=== PATIENT | female | born 1940 ===

== ENCOUNTER 2018-02-22 19:59 | Emergency (ER) | payer OTHER ==
[2018-02-22 20:09] VITALS: BP 170/80; TEMP 98.2; O2SAT 99
[2018-02-22] MEDS ORDERED: Iohexol 240 (50 ml) PO ONE (20:47)
[2018-02-22] MEDS ORDERED: Sodium Chloride 0.9% 1,000 ML IV ONE (20:48)
--- NOTE | 2018-02-22 20:53 | C.PDOC ---
History Of Present Illness 77 year old female presents to the ER with a complaint of intermittent epigastric/upper quadrant pain for the past few weeks, associated with some nausea. Patient also reports having a headache and dizziness that worsens with head movement. Denies vomiting, dysuria, or fever. Chief Complaint (Nursing): Abdominal Pain History Per: Patient History/Exam Limitations: no limitations Onset/Duration Of Symptoms: Days, Intermittent Episodes Current Symptoms Are (Timing): Still Present Location Of Pain/Discomfort: RUQ, Epigastric, LUQ Radiation Of Pain To:: None Quality Of Discomfort: Unable To Describe Associated Symptoms: Nausea, Other (Headache, dizziness). denies: Fever, Vomiting, Urinary Symptoms Exacerbating Factors: None Alleviating Factors: None Recent travel outside of the [place]: No Abnormal Vaginal Bleeding: No Past Medical History Reviewed: Historical Data, Nursing Documentation, Vital Signs Vital Signs: Last Vital Signs Temp 98.2 F 02/22/18 20:04 Pulse 78 02/22/18 20:04 Resp 20 02/22/18 20:04 BP 170/80 H 02/22/18 20:04 Pulse Ox 99 02/22/18 23:05 - Medical History PMH: HTN Family History: States: No Known Family Hx - Social History Hx Alcohol Use: No Hx Substance Use: No - Immunization History Hx Tetanus Toxoid Vaccination: No Hx Influenza Vaccination: No Hx Pneumococcal Vaccination: No Review Of Systems Constitutional: Negative for: Fever, Chills Cardiovascular: Negative for: Chest Pain, Palpitations Respiratory: Negative for: Cough, Shortness of Breath Gastrointestinal: Positive for: Nausea, Abdominal Pain. Negative for: Vomiting Genitourinary: Negative for: Dysuria, Hematuria Neurological: Positive for: Headache, Dizziness Physical Exam - Physical Exam Appears: Non-toxic, Other (Conscious, alert) Skin: Normal Color, Warm, Dry Head: Atraumatic, Normacephalic Eye(s): bilateral: Normal Inspection, PERRL, EOMI Oral Mucosa: Moist Neck: Normal, No Midline Cervical Tenderness, No Paracervical Tenderness, Supple Chest: Symmetrical, No Tenderness Cardiovascular: Rhythm Regular Respiratory: Normal Breath Sounds, No Rales, No Rhonchi, No Wheezing Gastrointestinal/Abdominal: Soft, Tenderness (Epigastric, RUQ, LLQ), No Guarding , No Rebound Back: No CVA Tenderness Neurological/Psych: Oriented x3, Normal Speech ED Course And Treatment - Laboratory Results Result Diagrams: 02/22/18 20:59 02/22/18 20:59 O2 Sat by Pulse Oximetry: 99 (Room air) Pulse Ox Interpretation: Normal Progress Note: CT abd/pel, CT head, blood work, and urinalysis ordered. IV fluids administered. Disposition Counseled Patient/Family Regarding: Diagnosis - Disposition Referrals: [facility] [Outside] Disposition: HOME/ ROUTINE Disposition Time: 23:00 Condition: STABLE Additional Instructions: to return if with increased abd pain especially of Right lower quadeant area. Prescriptions: Famotidine [Pepcid] 20 mg PO BID #20 tab Sucralfate [Carafate] 1 gm PO BID #14 tab Instructions: Acute Abdomen (Belly Pain), Adult (DC), Gastritis (DC), Thrombocytosis Forms: [facility] (Colombian), Gen Discharge Inst Luxem[place]ish Print Language: TUNISIAN - POA Present On Arrival: None - Clinical Impression Clinical Impression: Abdominal pain, Gastritis, Thrombocytosis - Scribe Statement The provider has reviewed the documentation as recorded by the Scribjarvis Aguilar All medical record entries made by the Vinnyibjarvis were at my direction and personally dictated by me. I have reviewed the chart and agree that the record accurately reflects my personal performance of the history, physical exam, medical decision making, and the department course for this patient. I have also personally directed, reviewed, and agree with the discharge instructions and disposition.
[2018-02-22] MEDS ORDERED: Iohexol 240 (50 ml) ONE (20:58)
[2018-02-22 21:03] LABS: HEMOGLOBIN 12.4 g/dL (11.0-16.0); LYMPH # 1.7 K/uL (1.0-4.3); LYMPH % 17.4 % (20.0-40.0); MONO # 1.4 K/uL (0.0-0.8); NEUT # 6.4 K/uL (1.8-7.0); NRBC % 0.1 % (0.0-2.0); WHITE BLOOD COUNT 9.7 K/uL (4.8-10.8)
[2018-02-22 21:18] LABS: BASO % 0.4 % (0.0-2.0); EOS # 0.2 K/uL (0.0-0.7); EOS % 1.8 % (0.0-4.0); MEAN CELL VOLUME 79.5 fL (81.0-99.0); MEAN CORPUSCULAR HGB CONC 32.7 g/dL (33.0-37.0); MEAN PLATELET VOLUME 8.4 fL (7.2-11.7); MONO % 14.5 % (0.0-10.0); NEUT % 65.9 % (50.0-75.0); RBC 4.79 Mil/uL (3.80-5.20); RED CELL DISTRIBUTION WIDTH 14.5 % (11.5-14.5)
[2018-02-22 21:23] LABS: ALB/GLOB RATIO 1.4 (1.0-2.1); ALBUMIN 4.3 g/dL (3.5-5.0); ALT/SGPT 32 U/L (9-52); AST/SGOT 29 U/L (14-36); BLOOD UREA NITROGEN 15 mg/dL (7-17); CALCIUM 9.4 mg/dl (8.6-10.4); GFR AFRICAN-AMERICAN > 60; GFR NON-AFRICAN AMERICAN > 60; LIPASE 100 U/L (23-300)
[2018-02-22] MEDS ORDERED: Iodixanol 320 MG/ML 100 ML BOTTLE IV ONE (21:52)
[2018-02-22 22:50] LABS: SQUAMOUS EPITHIAL 8 /hpf (0-5); URINE BILIRUBIN NEGATIVE (NEGATIVE); URINE BLOOD NEGATIVE (NEGATIVE); URINE CLARITY Hazy (Clear); URINE COLOR Straw (YELLOW); URINE GLUCOSE (UA) NORMAL (Normal); URINE LEUKOCYTE ESTERASE TRACE Leu/uL (Negative); URINE PROTEIN NEGATIVE (NEGATIVE); URINE UROBILINOGEN NORMAL mg/dL (0.2-1.0)
[2018-02-22 23:40] VITALS: PULSE 80; RESP 14
--- NOTE | 2018-02-23 08:16 | CT ---
Date of service: 02/22/2018 PROCEDURE: CT HEAD WITHOUT CONTRAST. HISTORY: headache/ vertigo COMPARISON: None available. TECHNIQUE: Axial computed tomography images were obtained through the head/brain without intravenous contrast. Radiation dose: Total exam DLP = 846 mGy-cm. This CT exam was performed using one or more of the following dose reduction techniques: Automated exposure control, adjustment of the mA and/or kV according to patient size, and/or use of iterative reconstruction technique. FINDINGS: HEMORRHAGE: No intracranial hemorrhage. BRAIN: Mild diffuse cerebral atrophy. Scattered focal lucencies in the subcortical and periventricular white matter suggestive for chronic microvascular ischemic change. Bilateral basal ganglia lacunar infarcts. VENTRICLES: Mild diffuse compensatory enlargement. CALVARIUM: Unremarkable. PARANASAL SINUSES: Unremarkable as visualized. No significant inflammatory changes. MASTOID AIR CELLS: Unremarkable as visualized. No inflammatory changes. OTHER FINDINGS: None. IMPRESSION: Age related atrophy and chronic white matter ischemic changes. If symptoms persists, consider correlation with MRI. These findings were preliminarily reported at 10:28 p.m. on 02/22/[address] Lori Rea from [facility].
--- NOTE | 2018-02-23 14:43 | CT ---
Date of service: 02/22/2018 PROCEDURE: CT Abdomen and Pelvis with contrast HISTORY: Left-sided abdominal pain. COMPARISON: None. TECHNIQUE: Contrast dose: 100 cc Visipaque 320. Radiation dose: Total exam DLP = 420.13 mGy-cm. This CT exam was performed using one or more of the following dose reduction techniques: Automated exposure control, adjustment of the mA and/or kV according to patient size, and/or use of iterative reconstruction technique. FINDINGS: LOWER THORAX: Peripheral pleural-based mass right middle lobe 8 x 15 mm. Noncalcified pulmonary nodule left lower lobe 6 mm. Peripheral infiltrate or mass anterior segment right lower lobe. LIVER: Unremarkable. No gross lesion or ductal dilatation. GALLBLADDER AND BILE DUCTS: Unremarkable. PANCREAS: Cystic mass in the head of the pancreas 18 mm. The findings are nonspecific. Recommend follow-up MRI. SPLEEN: Unremarkable. ADRENALS: Unremarkable. No mass. KIDNEYS AND URETERS: Unremarkable. No hydronephrosis. No solid mass. Incidental finding(s): Multiple bilateral renal cysts. VASCULATURE: Unremarkable. No aortic aneurysm. BOWEL: Thickening of the wall of small bowel particularly involving the ileum, terminal ileum but sparing the ileocecal valve likely ileitis. Constipation without fecal impaction or obstruction. APPENDIX: Dilated appendix without adjacent collection. Findings are likely acute appendicitis. PERITONEUM: Unremarkable. No free fluid. No free air. LYMPH NODES: Unremarkable. No enlarged lymph nodes. BLADDER: Unremarkable. REPRODUCTIVE: Prior hysterectomy BONES: No acute fracture. OTHER FINDINGS: None. IMPRESSION: Suspicious findings for early acute appendicitis. Findings consistent with ileitis/enteritis. Multiple pulmonary masses/ nodules which require further evaluation. CT thorax advised. Mass in the head of the pancreas 18 mm. Follow-up recommended including abdominal MRI. Concordant results (preliminary interpretation) provided by [employer]. Procedure Completed: :14. Preliminary ([facility]) Report: Dictated and Authenticated: 22:46. Final Interpretation: 14:42. February 23, 2018.
== END 2018-02-22 23:39 | disposition home or self-care (01) ==
LOC: C.ER 19:59
DX: K29.70 Gastritis, unspecified, without bleeding (principal); D47.3 Essential (hemorrhagic) thrombocythemia; R10.9 Unspecified abdominal pain; I10 Essential (primary) hypertension
CPT/HCPCS: 70450; 74177; 80053; 81001; 83690; 85025; 99284; J7030; Q9966; Q9967